=== PATIENT | male | born 1960 | race Caucasian/White ===

== ENCOUNTER 2019-03-11 19:39 | Inpatient (IN) | payer OTHER, MEDICAID ==
[~2019-03-11] VITALS: Ht 170.2 cm; Wt 64.9 kg
[~2019-03-11 19:39] MED LIST: ACET-2634 GT; ACET325T53 GT; CAPTOPRIL; CARB200T GT; CAT.2 GT; CAT3PAT TD; DEPAKOTE; DIPH25TA62 GT; FOLI-43 GT; GABAPENTIN; HYDR-4272 GT; HYDR100T25 GT; KEPPRA; LANS15CA14 GT; LEVE100S2 PO; LORA-259 GT; MOM GT; NOR10 GT; ONDA4TAB5 PO; PEDI1TAB28 GT; POLY17PO4 GT; SENN8.6T19 GT; SIMVASTATIN; SODI650T GT; TOPXL100 PO; TRI48 PO
[2019-03-11 20:25] VITALS: BP_SYST 177
[2019-03-11 21:26] LABS: BASOPHILS # (AUTO) 0.1 K/uL (0.0-0.2); BASOPHILS % (AUTO) 1.1 % (0.0-2.0); EOSINOPHILS # (AUTO) 0.1 K/uL (0.0-0.4); HEMATOCRIT 22.1 % (36-54); LYMPHOCYTES # (AUTO) 1.7 K/uL (1.0-5.5); LYMPHOCYTES % (AUTO) 34.7 % (20.5-51.5); MEAN CORPUSCULAR HEMOGLOBIN 30 pg (27-31); MEAN CORPUSCULAR HGB CONC 32 % (32-36); MEAN CORPUSCULAR VOLUME 95 fL (79.0-98.0); MONOCYTES # (AUTO) 0.4 K/uL (0.0-1.0); MONOCYTES % (AUTO) 8.8 % (1.7-9.3); NEUTROPHILS # (AUTO) 2.6 K/uL (1.8-7.7); NEUTROPHILS % (AUTO) 52.4 % (40.0-70.0); PLATELET COUNT (AUTO) 274 K/uL (130-430); RED BLOOD CELL COUNT(AUTO) 2.32 MIL/uL (4.2-6.2); RED CELL DISTRIBUTION WIDTH 18.3 % (9.0-15.0); WHITE BLOOD COUNT (AUTO) 4.9 K/uL (4.8-10.8)
[2019-03-11 21:44] LABS: ANION GAP 12 (5-15); CALCIUM 8.6 mg/dL (8.4-11.0); CHLORIDE 117 mmol/L (98-107); CREATININE 2.07 mg/dL (0.55-1.30); GLUCOSE 152 mg/dL (70-99); POTASSIUM 4.7 mmol/L (3.5-5.1); SODIUM SERUM 148 mmol/L (136-145); UREA NITROGEN, BLOOD 49 mg/dL (8-21)
[2019-03-11 21:45] LABS: GFR AFRICAN AMERICAN 43 mL/min (>90)
[2019-03-11 21:46] LABS: INR 1.1 (0.80-1.20); PROTHROMBIN TIME 11.1 SECS (9.5-12.5)
[2019-03-11 21:53] LABS: ALANINE AMINOTRANSFERASE 21 U/L (12-78); ALBUMIN 2.5 g/dL (3.4-4.8); ASPARTATE AMINOTRANSFERASE 29 U/L (10-37); TOTAL BILIRUBIN 0.3 mg/dL (0.0-1.0)
[2019-03-12] VITALS (8 sets, daily range): BP systolic 132–163
[2019-03-12] MEDS ORDERED: ACETAMINOPHEN 325 MG TABLET PO PRN (07:45)
[2019-03-12] MEDS ORDERED: ONDANSETRON 4 MG ODT TAB PO PRN ×2 (07:45→14:00)
[2019-03-12] MEDS ORDERED: ACETAMINOPHEN 500 MG TABLET PO PRN (07:45)
[2019-03-12] MEDS ORDERED: HYDROcodone/ACETAMIN 5-325 MG TAB (NORCO/ VICODIN) PO PRN (07:45)
[2019-03-12] MEDS ORDERED: MILK OF MAGNESIA 30 ML UDC PO PRN (07:45)
[2019-03-12] MEDS ORDERED: LORazepam 1 MG TABLET PO PRN (07:45)
[2019-03-12] MEDS ORDERED: DIPHENHYDRAMINE HCL 25 MG CAPSULE PO PRN (07:45)
[2019-03-12] MEDS ORDERED: LANSOPRAZOLE 30 MG CAPSULE.DR GT ONE (08:00)
[2019-03-12] MEDS: FENOFIBRATE NANOCRYSTALLIZED 48 MG TABLET (TRICOR) PO SCH (09:51)
[2019-03-12] MEDS: amLODIPine BESYLATE 10 MG TABLET PO SCH (09:52)
[2019-03-12] MEDS: FOLIC ACID 1 MG TABLET PO SCH (09:52)
[2019-03-12] MEDS: METOPROLOL SUCCINATE 50 MG TAB.SR.24H (TOPROL XL) PO SCH (09:52)
[2019-03-12] MEDS ORDERED: LEVE1000 PO (13:59)
[2019-03-12] MEDS ORDERED: FENOFIBRATE NANOCRYSTALLIZED 48 MG TABLET (TRICOR) PO ONE (14:00)
[2019-03-12] MEDS ORDERED: ACETAMINOPHEN 500 MG TABLET GT PRN (14:00)
[2019-03-12] MEDS ORDERED: HYDROcodone/ACETAMIN 5-325 MG TAB (NORCO/ VICODIN) GT SCH (14:00)
[2019-03-12] MEDS ORDERED: amLODIPine BESYLATE 10 MG TABLET PO ONE (14:00)
[2019-03-12] MEDS ORDERED: METOPROLOL SUCCINATE 50 MG TAB.SR.24H (TOPROL XL) PO ONE (14:00)
[2019-03-12] MEDS ORDERED: LORazepam 1 MG TABLET GT SCH (14:00)
[2019-03-12] MEDS ORDERED: ACETAMINOPHEN 325 MG TABLET PO ONE (15:45)
[2019-03-12] MEDS: levETIRAcetam 500 MG TABLET PO SCH (20:17)
[2019-03-13 01:48] VITALS: BP_SYST 136
[2019-03-13] MEDS ORDERED: FOLIC ACID 1 MG TABLET GT SCH (09:00)
[2019-03-14] MEDS: FOLIC ACID 1 MG TABLET PO SCH (09:00)
[2019-03-15 00:29] VITALS: BP_SYST 124
[2019-03-15 00:54] VITALS: BP_SYST 152
[2019-03-15] MEDS: LANSOPRAZOLE 30 MG CAPSULE.DR GT SCH (07:00)
[2019-03-15 07:41] LABS: BASOPHILS % (AUTO) 0.6 % (0.0-2.0); EOSINOPHILS # (AUTO) 0.2 K/uL (0.0-0.4); EOSINOPHILS % (AUTO) 3.5 % (0.0-4.0); HEMATOCRIT 23.1 % (36-54); HEMOGLOBIN 7.6 g/dL (14.0-18.0); LYMPHOCYTES # (AUTO) 1.6 K/uL (1.0-5.5); LYMPHOCYTES % (AUTO) 25.3 % (20.5-51.5); MEAN CORPUSCULAR HEMOGLOBIN 31 pg (27-31); MEAN CORPUSCULAR HGB CONC 33 % (32-36); MEAN CORPUSCULAR VOLUME 94 fL (79.0-98.0); MONOCYTES # (AUTO) 0.4 K/uL (0.0-1.0); MONOCYTES % (AUTO) 6.5 % (1.7-9.3); NEUTROPHILS % (AUTO) 64.1 % (40.0-70.0); PLATELET COUNT (AUTO) 268 K/uL (130-430); RED BLOOD CELL COUNT(AUTO) 2.46 MIL/uL (4.2-6.2); RED CELL DISTRIBUTION WIDTH 16.6 % (9.0-15.0); WHITE BLOOD COUNT (AUTO) 6.3 K/uL (4.8-10.8)
[2019-03-15 08:17] LABS: CALCIUM 8.6 mg/dL (8.4-11.0); CREATININE 1.92 mg/dL (0.55-1.30); POTASSIUM 5.7 mmol/L (3.5-5.1)
[2019-03-15 12:10] VITALS: BP_SYST 121
[2019-03-15 16:07] VITALS: BP_SYST 139
[2019-03-15] MEDS ORDERED: SODIUM POLYSTYRENE SULFONATE 15 GM/60 ML UDBTL PO ONE (17:15)
[2019-03-16] VITALS: BP_SYST 160
[2019-03-16 03:30] VITALS: BP_SYST 141
[2019-03-16] MEDS ORDERED: SODIUM POLYSTYRENE SULFONATE 15 GM/60 ML UDBTL ONE (03:40)
[2019-03-16] MEDS: LANSOPRAZOLE 30 MG CAPSULE.DR GT SCH ×2 (06:11→07:00)
[2019-03-16 08:26] LABS: HEMATOCRIT 22.1 % (36-54); HEMOGLOBIN 7.4 g/dL (14.0-18.0); MEAN CORPUSCULAR HEMOGLOBIN 31 pg (27-31); MEAN CORPUSCULAR HGB CONC 34 % (32-36); MEAN CORPUSCULAR VOLUME 94 fL (79.0-98.0); PLATELET COUNT (AUTO) 246 K/uL (130-430); RED BLOOD CELL COUNT(AUTO) 2.37 MIL/uL (4.2-6.2); RED CELL DISTRIBUTION WIDTH 16.5 % (9.0-15.0); WHITE BLOOD COUNT (AUTO) 5.5 K/uL (4.8-10.8)
[2019-03-16 08:29] LABS: CALCIUM 8.1 mg/dL (8.4-11.0); CREATININE 2.03 mg/dL (0.55-1.30); POTASSIUM 5.5 mmol/L (3.5-5.1)
[2019-03-16 08:49] VITALS: BP_SYST 142
[2019-03-16] MEDS: METOPROLOL SUCCINATE 50 MG TAB.SR.24H (TOPROL XL) PO SCH (09:22)
[2019-03-16] MEDS: levETIRAcetam 500 MG TABLET PO SCH ×2 (09:23→20:47)
[2019-03-16] MEDS: FENOFIBRATE NANOCRYSTALLIZED 48 MG TABLET (TRICOR) PO SCH (09:23)
[2019-03-16] MEDS: FOLIC ACID 1 MG TABLET PO SCH (09:23)
[2019-03-16] MEDS: ACETAMINOPHEN 325 MG TABLET PO SCH (09:24)
[2019-03-16] MEDS: MILK OF MAGNESIA 30 ML UDC PO SCH (09:24)
[2019-03-16] MEDS: amLODIPine BESYLATE 10 MG TABLET PO SCH (09:24)
[2019-03-16 12:15] VITALS: BP_SYST 137
[2019-03-16 14:49] LABS: BASOPHILS % (MANUAL) 0 % (0-2); EOSINOPHILS % (MANUAL) 5 % (0-7); LYMPHOCYTES % (MANUAL) 13 % (20-46); MONOCYTES % (MANUAL) 6 % (0-11)
[2019-03-16 16:28] VITALS: BP_SYST 137
[2019-03-16] MEDS ORDERED: SODIUM POLYSTYRENE SULFONATE 15 GM/60 ML UDBTL PO SCH (19:00)
[2019-03-17 01:09] VITALS: BP_SYST 138
[2019-03-17] MEDS: LANSOPRAZOLE 30 MG CAPSULE.DR GT SCH ×2 (06:35→07:00)
[2019-03-17 08:57] VITALS: BP_SYST 145
[2019-03-17] MEDS: FOLIC ACID 1 MG TABLET PO SCH ×2 (10:30→10:38)
[2019-03-17] MEDS: FENOFIBRATE NANOCRYSTALLIZED 48 MG TABLET (TRICOR) PO SCH ×2 (10:31→10:38)
[2019-03-17] MEDS: ACETAMINOPHEN 325 MG TABLET PO SCH ×2 (10:31→10:39)
[2019-03-17] MEDS: levETIRAcetam 500 MG TABLET PO SCH ×3 (10:31→21:17)
[2019-03-17] MEDS: amLODIPine BESYLATE 10 MG TABLET PO SCH ×2 (10:32→10:38)
[2019-03-17] MEDS: METOPROLOL SUCCINATE 50 MG TAB.SR.24H (TOPROL XL) PO SCH ×2 (10:32→10:39)
[2019-03-17] MEDS: MILK OF MAGNESIA 30 ML UDC PO SCH ×2 (10:33→10:40)
[2019-03-17 11:26] VITALS: BP_SYST 132
[2019-03-17 15:23] VITALS: BP_SYST 99
[2019-03-17 20:00] VITALS: BP_SYST 121; BP_SYST 131
[2019-03-18] VITALS: BP_SYST 148
[2019-03-18] MEDS: LANSOPRAZOLE 30 MG CAPSULE.DR GT SCH (06:12)
[2019-03-18 07:18] LABS: BASOPHILS % (AUTO) 0.6 % (0.0-2.0); EOSINOPHILS # (AUTO) 0.2 K/uL (0.0-0.4); EOSINOPHILS % (AUTO) 2.3 % (0.0-4.0); HEMATOCRIT 29.6 % (36-54); LYMPHOCYTES # (AUTO) 1.5 K/uL (1.0-5.5); LYMPHOCYTES % (AUTO) 17.3 % (20.5-51.5); MEAN CORPUSCULAR HEMOGLOBIN 32 pg (27-31); MEAN CORPUSCULAR HGB CONC 34 % (32-36); MEAN CORPUSCULAR VOLUME 94 fL (79.0-98.0); MONOCYTES # (AUTO) 0.7 K/uL (0.0-1.0); MONOCYTES % (AUTO) 8.4 % (1.7-9.3); NEUTROPHILS # (AUTO) 6.2 K/uL (1.8-7.7); NEUTROPHILS % (AUTO) 71.4 % (40.0-70.0); PLATELET COUNT (AUTO) 229 K/uL (130-430); RED BLOOD CELL COUNT(AUTO) 3.15 MIL/uL (4.2-6.2); RED CELL DISTRIBUTION WIDTH 16.1 % (9.0-15.0); WHITE BLOOD COUNT (AUTO) 8.7 K/uL (4.8-10.8)
[2019-03-18 07:38] LABS: CREATININE 2.09 mg/dL (0.55-1.30); POTASSIUM 5.1 mmol/L (3.5-5.1)
[2019-03-18 08:16] VITALS: BP_SYST 139
[2019-03-18] MEDS: amLODIPine BESYLATE 10 MG TABLET PO SCH (09:26)
[2019-03-18] MEDS: METOPROLOL SUCCINATE 50 MG TAB.SR.24H (TOPROL XL) PO SCH (09:27)
[2019-03-18] MEDS: FOLIC ACID 1 MG TABLET PO SCH (09:28)
[2019-03-18] MEDS: levETIRAcetam 500 MG TABLET PO SCH ×2 (09:28→20:01)
[2019-03-18] MEDS: FENOFIBRATE NANOCRYSTALLIZED 48 MG TABLET (TRICOR) PO SCH (09:28)
[2019-03-18] MEDS: MILK OF MAGNESIA 30 ML UDC PO SCH (09:29)
[2019-03-18] MEDS: ACETAMINOPHEN 325 MG TABLET PO SCH (09:29)
[2019-03-18 11:31] VITALS: BP_SYST 128
[2019-03-18 15:36] VITALS: BP_SYST 113
[2019-03-18 22:30] VITALS: BP_SYST 125
[2019-03-25 10:29] LABS: CALCIUM 8.4 mg/dL (8.4-11.0); POTASSIUM 4.5 mmol/L (3.5-5.1)
[2019-03-25 10:30] LABS: CREATININE 1.99 mg/dL (0.55-1.30)
[2019-03-25 10:31] LABS: HEMATOCRIT 22.4 % (36-54); HEMOGLOBIN 7.3 g/dL (14.0-18.0); MEAN CORPUSCULAR HEMOGLOBIN 31 pg (27-31); MEAN CORPUSCULAR HGB CONC 33 % (32-36); MEAN CORPUSCULAR VOLUME 95 fL (79.0-98.0); PLATELET COUNT (AUTO) 242 K/uL (130-430); RED BLOOD CELL COUNT(AUTO) 2.36 MIL/uL (4.2-6.2); RED CELL DISTRIBUTION WIDTH 17.2 % (9.0-15.0); WHITE BLOOD COUNT (AUTO) 6.2 K/uL (4.8-10.8)
[2019-03-25 10:34] LABS: ATYPICAL LYMPHOCYTES % 0 % (0-0); BAND % (MANUAL) 1 % (0-6); BASOPHILS % (MANUAL) 0 % (0-2); EOSINOPHILS % (MANUAL) 1 % (0-7); LYMPHOCYTES % (MANUAL) 31 % (20-46); MONOCYTES % (MANUAL) 6 % (0-11)
[2019-03-25 10:35] LABS: INR 1.1 (0.80-1.20)
[2019-03-25 10:37] LABS: TOTAL IRON BIND. CAPACITY 268 ug/dL (250-450)
== END 2019-03-18 22:30 | DRG 811 ==
LOC: SED 19:39 → STU 23:05 → SMU 03-14 00:17
PROVIDERS: ADMIT Family Medicine; ATTEND Family Medicine
PROC: 30233N1 Transfusion of Nonautologous Red Blood Cells into Peripheral Vein, Percutaneous Approach (ICD-10-PCS; principal; 2019-03-17)
DX: D64.9 Anemia, unspecified (principal); E43 Unspecified severe protein-calorie malnutrition; N18.9 Chronic kidney disease, unspecified; I12.9 Hypertensive chronic kidney disease with stage 1 through stage 4 chronic kidney disease, or unspecified chronic kidney disease; G40.909 Epilepsy, unspecified, not intractable, without status epilepticus; K21.9 Gastro-esophageal reflux disease without esophagitis; E11.40 Type 2 diabetes mellitus with diabetic neuropathy, unspecified; E86.0 Dehydration; E11.22 Type 2 diabetes mellitus with diabetic chronic kidney disease; Z86.73 Personal history of transient ischemic attack (TIA), and cerebral infarction without residual deficits; Z68.22 Body mass index [BMI] 22.0-22.9, adult; Z88.8 Allergy status to other drugs, medicaments and biological substances; Z79.899 Other long term (current) drug therapy
CPT/HCPCS: 36415; 80048; 80053; 82607; 82728; 82746; 83540-TC; 83550-TC; 83735-TC; 84484; 85007; 85025; 85027; 85384-TC; 85610-TC; 85730-TC; 86886; 86900; 86901; 86920; 87081; 93005; 97110-GP; 97530-GP; 99285; G0378; J7040; J7050; P9021

== ENCOUNTER 2019-06-16 08:54 | Inpatient (IN) | payer OTHER, MEDICAID ==
[~2019-06-16] VITALS: Ht 170.2 cm; Wt 78.9 kg
[~2019-06-16 08:54] MED LIST changes: -CAPTOPRIL; -CAT.2 GT; -CAT3PAT TD; -DEPAKOTE; -GABAPENTIN; -HYDR100T25 GT; -KEPPRA; +LEVE1000 PO; -PEDI1TAB28 GT; -POLY17PO4 GT; -SENN8.6T19 GT; -SIMVASTATIN; -SODI650T GT
--- NOTE | 2019-06-16 09:15 | NUR ---
Patient to ER bed 5 to gown for evaluation. Side rails up. Resumed care.
--- NOTE | 2019-06-16 09:19 | NUR ---
Patient came into ER because he had seen his PMD Dr. Oropeza and was told to come to ER due to hypotension. BP 131/111, HR 82, Resp 14, O2 97%. Patient has history of epilepsy. Side rails covered with padding and gurney placed at lowest position. Patient not presenting any signs of acute distress or c/o pain.
--- NOTE | 2019-06-16 09:19 | NUR ---
ER Dr. Palma at bedside examining patient.
[2019-06-16 09:42] LABS: BASOPHILS # (AUTO) 0.1 K/uL (0.0-0.2); BASOPHILS % (AUTO) 1.1 % (0.0-2.0); EOSINOPHILS # (AUTO) 0.1 K/uL (0.0-0.4); HEMATOCRIT 22.5 % (36-54); HEMOGLOBIN 7.2 g/dL (14.0-18.0); LYMPHOCYTES # (AUTO) 2.1 K/uL (1.0-5.5); LYMPHOCYTES % (AUTO) 37.3 % (20.5-51.5); MEAN CORPUSCULAR HEMOGLOBIN 31 pg (27-31); MEAN CORPUSCULAR HGB CONC 32 % (32-36); MEAN CORPUSCULAR VOLUME 97 fL (79.0-98.0); MONOCYTES # (AUTO) 0.4 K/uL (0.0-1.0); MONOCYTES % (AUTO) 7.2 % (1.7-9.3); NEUTROPHILS # (AUTO) 2.9 K/uL (1.8-7.7); NEUTROPHILS % (AUTO) 52.4 % (40.0-70.0); PLATELET COUNT (AUTO) 218 K/uL (130-430); RED BLOOD CELL COUNT(AUTO) 2.33 MIL/uL (4.2-6.2); RED CELL DISTRIBUTION WIDTH 16.8 % (9.0-15.0); WHITE BLOOD COUNT (AUTO) 5.5 K/uL (4.8-10.8)
[2019-06-16 09:55] LABS: CALCIUM 8.6 mg/dL (8.4-11.0); CREATININE 2.45 mg/dL (0.55-1.30); INR 1.1 (0.80-1.20); POTASSIUM 5.1 mmol/L (3.5-5.1); PROTHROMBIN TIME 11.5 SECS (9.5-12.5)
[2019-06-16 10:01] LABS: ALBUMIN 2.7 g/dL (3.4-4.8); TOTAL BILIRUBIN 0.4 mg/dL (0.0-1.0)
[2019-06-16] MEDS ORDERED: D5NS 1,000 ML IV ONE (10:45)
[2019-06-16] MEDS ORDERED: CAT.2 PO (11:07)
[2019-06-16] MEDS ORDERED: SODI650T PO (11:08)
[2019-06-16] MEDS ORDERED: HYDR100T25 PO (11:08)
--- NOTE | 2019-06-16 11:15 | NUR ---
# 20 gauge angiocath placed to R Forearm. Use of asceptic technique. Opsite placed over site. Blood return noted. Blood for lab drawn from site. Flushed with 10 cc of normal saline. No evidence of infiltration noted. Patient tolerated well.
--- NOTE | 2019-06-16 11:45 | NUR ---
Patient will be admitted to care of clinical appeals rn. Admitted to Tele unit. Will go to room 114B. Belongings list completed. Complete and up to date summary report printed. SBAR report to be given at bedside with opportunity for questions.
--- NOTE | 2019-06-16 11:56 | NUR ---
ADMISSION NOTE Received patient from ER via [email or web address], received report from JUNIE DOMINGUEZ. Patient admitted with diagnosis of SEVERE ANEMIA. Patient oriented to hospital routine, call light, toileting and safety-patient verbalized understanding. ACCORDING TO JUNIE DOMINGUEZ, MULTIPLE ATTEMPTS WERE MADE TO REACH THE FAMILY FOR BLOOD TRANSFUSION CONSENT.
--- NOTE | 2019-06-16 12:00 | NUR ---
opening note patient is resting in bed, patient able to state name and to me, educated energy economist light system and plan of care, patient was able to verbalize response to me, no signs of distress at this time, IV site dressing in tact, offered orange juice to the patient, no other needs at this time, bed in lowest position, three side rails up, call light within reach, bed alarm on, brake armed, fall/safety precautions in place.
[2019-06-16 12:14] VITALS: BP_SYST 143
[2019-06-16] MEDS ORDERED: ACETAMINOPHEN 500 MG TABLET GT PRN (14:30)
[2019-06-16] MEDS ORDERED: FOLIC ACID 1 MG TABLET GT ONE (14:30)
[2019-06-16] MEDS ORDERED: cloNIDine HCL 0.2 MG TABLET PO PRN (14:30)
[2019-06-16] MEDS ORDERED: ONDANSETRON HCL 4 MG/2 ML VIAL IVP PRN (14:45)
--- NOTE | 2019-06-16 15:33 | NUR ---
BT INITIATION: Consent signed per sister agreeing to administration of blood. Blood has been type and crossmatched. Blood sent from blood bank. Information on unit of blood checked against patient wristband at bedside by two nurses. All information matches. Patient or responsible constitution party informed of potential complications associated with blood transfusion. Informed of possible transfusion reaction symptoms. Aware of need to notify nurse at once of itching, shortness of breath, flushing, feeling of impending doom, or other symptoms not previously present. Vital signs taken within 5 minutes prior to initiation of transfusion. RN will remain with patient for first 15 minutes of transfusion at which time vital signs will be re-assessed.
[2019-06-16 16:00] VITALS: BP_SYST 104
[2019-06-16] MEDS ORDERED: FENOFIBRATE NANOCRYSTALLIZED 48 MG TABLET (TRICOR) PO ONE (16:15)
[2019-06-16] MEDS ORDERED: ACETAMINOPHEN 650 MG/20.3 ML UDC GT PRN (16:30)
[2019-06-16] MEDS: D5/0.45 NS 1,000 ML IV SCH (16:36)
--- NOTE | 2019-06-16 19:00 | NUR ---
CLOSING NOTE patient is resting in bed, 1 unit of PRBCs done, no signs of distress or reactions at this time, IV site dressing in tact, patient able to eat dinner with no signs of aspiration, no other needs at this time, bed in lowest position, three side rails up, call light within reach, bed alarm on, brake armed, fall/safety precautions in place, will endorse care to evening or night nurse supervisor nurse to continue with care, patient needs one more unit of PRBCs, patient is incontinent, I spoke to sister to confirm name and and is aware of the plan of care.
--- NOTE | 2019-06-16 19:50 | NUR ---
OPENING NOTES Received report from ANGELICA Robertson. Patient is resting in bed, awake, alert, oriented x 2-3, breathing evenly and nonlabored on room air. Patient has an IV on the left wrist 20g, patent and benign, no s/s of infection or infiltration noted at this time. Educated patient on plan of care, fall/safety/aspiration/seizure precautions, call light system, patient said "ok." Bed is locked, armed, and at lowest position, will continue to monitor the patient.
[2019-06-16 20:10] VITALS: BP_SYST 120
[2019-06-16] MEDS: SODIUM BICARBONATE 650 MG TABLET GT SCH (20:54)
[2019-06-16] MEDS: MILK OF MAGNESIA 30 ML UDC GT SCH (20:54)
[2019-06-16] MEDS: LevETIRAcetam 500 MG/5 ML UDC ORAL LIQUID GT SCH (20:55)
[2019-06-16] MEDS: hydrALAZINE HCL 25 MG TABLET GT SCH (20:57)
--- NOTE | 2019-06-16 21:05 | NUR ---
MEDICATIONS/ROUNDS Patient is resting in bed, awake, breathing evenly and nonlabored on room air. Educated patient on due medications, patient said "ok." Administered due medications, patient tolerated them well. No s/s of distress at this time, no other needs at this time. Fall/safety/aspiration precautions, will continue to monitor.
--- NOTE | 2019-06-16 21:52 | NUR ---
medications Due medications given. Patient reports he does not like applesauce, though he does like vanilla pudding. Medications were crushed and mixed in pudding and patient took all meds without difficulty.
--- NOTE | 2019-06-16 22:45 | NUR ---
SECOND UNIT OF BLOOD Patient is resting in bed, awake, breathing evenly and nonlabored on room air. Educated patient on procedure, patient said "ok." Vital signs stable. Patient denies any pain at this time. Started the second unit of blood started at 2230, vital signs stable after 15 minutes, patient appears to be tolerating it well. No s/s of distress at this time, no other needs at this time. Fall/safety/aspiration precautions, will continue to monitor.
[2019-06-16 22:51] VITALS: BP_SYST 116
--- NOTE | 2019-06-17 02:05 | NUR ---
BLOOD TRANSFUSION FINISHED Patient is resting in bed, awake, breathing evenly and nonlabored on room air. Vital signs stable after blood transfusion was done. No s/s of distress at this time, no other needs at this time. Fall/safety/aspiration precautions, will continue to monitor. Addendum: 06/17/19 at 0416 by Florian Barboza RN IVF restarted, patient is tolerating it well.
[2019-06-17] MEDS: D5/0.45 NS 1,000 ML IV SCH ×2 (02:16→14:36)
[2019-06-17] MEDS: hydrALAZINE HCL 25 MG TABLET GT SCH ×3 (05:35→21:52)
--- NOTE | 2019-06-17 06:46 | NUR ---
CLOSING NOTES Patient is resting in bed, awake, breathing evenly and nonlabored on room air. Educated patient on due medications, patient said "ok." Administered due medications, patient tolerated them well. No s/s of distress at this time, no other needs at this time. Fall/safety/aspiration precautions, will endorse care to morning shift RN.
[2019-06-17 07:08] LABS: BASOPHILS % (AUTO) 0.7 % (0.0-2.0); EOSINOPHILS # (AUTO) 0.1 K/uL (0.0-0.4); EOSINOPHILS % (AUTO) 1.4 % (0.0-4.0); HEMATOCRIT 32.3 % (36-54); HEMOGLOBIN 10.8 g/dL (14.0-18.0); LYMPHOCYTES # (AUTO) 1.3 K/uL (1.0-5.5); LYMPHOCYTES % (AUTO) 20.9 % (20.5-51.5); MEAN CORPUSCULAR HEMOGLOBIN 31 pg (27-31); MEAN CORPUSCULAR HGB CONC 34 % (32-36); MEAN CORPUSCULAR VOLUME 92 fL (79.0-98.0); MONOCYTES # (AUTO) 0.5 K/uL (0.0-1.0); MONOCYTES % (AUTO) 7.6 % (1.7-9.3); NEUTROPHILS # (AUTO) 4.1 K/uL (1.8-7.7); NEUTROPHILS % (AUTO) 69.4 % (40.0-70.0); PLATELET COUNT (AUTO) 178 K/uL (130-430); RED CELL DISTRIBUTION WIDTH 16.7 % (9.0-15.0)
[2019-06-17 07:19] LABS: CALCIUM 8.3 mg/dL (8.4-11.0); CREATININE 2.03 mg/dL (0.55-1.30); POTASSIUM 5.6 mmol/L (3.5-5.1)
[2019-06-17 07:31] LABS: TOTAL IRON BIND. CAPACITY 298 ug/dL (250-450)
--- NOTE | 2019-06-17 08:00 | NUR ---
Opening note patient resting in bed, a/ox2 - reoriented to place, time and event, he verbalized understanding, denies pain, no distress, IV line is patent and infusing well, fed the patient breakfast, aspiration precautions in place, educated the patient occupational therapy assistant light system, he verbalized understanding, bed in lowest position, three side rails up, bed alarm on, bed close to nursing station, fall, aspiration and seizure precautions in place.
[2019-06-17 08:12] VITALS: BP_SYST 155
[2019-06-17] MEDS ORDERED: ACETAMINOPHEN 325 MG TABLET GT SCH (09:00)
[2019-06-17] MEDS: FENOFIBRATE NANOCRYSTALLIZED 48 MG TABLET (TRICOR) PO SCH (09:19)
[2019-06-17] MEDS: SODIUM BICARBONATE 650 MG TABLET GT SCH ×2 (09:19→21:51)
[2019-06-17] MEDS: MILK OF MAGNESIA 30 ML UDC GT SCH ×2 (09:19→21:51)
[2019-06-17] MEDS: LevETIRAcetam 500 MG/5 ML UDC ORAL LIQUID GT SCH ×2 (09:20→21:51)
[2019-06-17] MEDS: METOPROLOL SUCCINATE 50 MG TAB.SR.24H (TOPROL XL) PO SCH (09:20)
[2019-06-17] MEDS: FOLIC ACID 1 MG TABLET GT SCH (09:20)
[2019-06-17] MEDS: amLODIPine BESYLATE 10 MG TABLET GT SCH (09:20)
--- NOTE | 2019-06-17 09:20 | NUR ---
Medication/Hygiene patient resting in bed, awake, denies pain, patient had a large BM, cleaned, turned and repositioned the patient, he tolerated well, administered morning medications per MD orders, patient tolerated well, no other needs at this time, continuing to monitor, bed in lowest position, three side rails up, bed alarm on, bed close to nursing station, fall, aspiration and seizure precautions in place.
--- NOTE | 2019-06-17 10:14 | NUR ---
Nutrition Update Michael Scale 14 noted. Pt admitted for severe anemia. Diet: mechanical soft, CCHO low carb-45 gm BMI: 27.4 kg/m2 RD to follow per nutrition care standards.
--- NOTE | 2019-06-17 11:20 | NUR ---
RN rounds patient resting in bed, eyes closed, breathing is even and unlabored, no signs of distress, easy to wake, patient denies pain, vital signs taken, IV line is patent and infusing well, no other needs at this time, continuing to monitor, bed in lowest position, three side rails up, bed alarm on, bed close to nursing station, fall, seizure and aspiration precautions in place.
--- NOTE | 2019-06-17 12:40 | NUR ---
RN rounds patient resting in bed, denies pain, no distress, assisted with eating lunch, aspiration precautions in place, patient tolerated well, continuing to monitor , bed in lowest position, three side rails up, bed alarm on, bed close to nursing station, fall, aspiration and seizure precautions in place.
[2019-06-17 12:45] VITALS: BP_SYST 130
--- NOTE | 2019-06-17 14:40 | NUR ---
RN rounds/Medication patient resting in bed, awake, complaining of abdominal pain, administered PRN and scheduled medication per MD orders, continuing to monitor the patient, IV line is patent and infusing well, bed in lowest position, three side rails up, bed alarm on, bed close to nursing station, call light within reach, fall, seizure and aspiration precautions in place.
[2019-06-17 16:50] VITALS: BP_SYST 111
--- NOTE | 2019-06-17 17:44 | NUR ---
Family at bedside updates given, family is feeding the patient, aspiration precautions in place.
--- NOTE | 2019-06-17 18:35 | NUR ---
Closing note patient resting in bed, awake, denies pain, IV line is patent and infusing well, all needs met, will endorse report to NOC shift nurse, bed in lowest position, three side rails up, bed alarm on, bed close to nursing station, fall, aspiration and seizure precautions in place.
--- NOTE | 2019-06-17 19:25 | NUR ---
Opening note Patient is resting on JARED mattress. No s/sx of distress or SOB noted. IVF infusing via IV to Lt wrist. Bed is locked in lowest position, side rails up 3x, seizure pads on side rails. Updated board.
[2019-06-17 20:00] VITALS: BP_SYST 124
--- NOTE | 2019-06-17 22:30 | NUR ---
Patient care Patient had a bowel movement and he was provided with pericare and partial bed bath. He was provided with new pad and linen. He was repositioned and turned.
[2019-06-17] MEDS: HYDROcodone/ACETAMIN 5-325 MG TAB (NORCO/ VICODIN) GT PRN (23:02)
--- NOTE | 2019-06-17 23:05 | NUR ---
c/o pain Patient reporting a headache and abdominal pain, I asked how much [id number] number does he give... and he replied he has medicine at home. I determined he was having moderate pain and administered [place] for moderate pain. Will follow-up, continue to monitor.
--- NOTE | 2019-06-18 00:07 | NUR ---
RN rounds Patient is awake, he reports headache is decreased (1/10), V/S taken and stable. He is watching t.v. and he said he wants t.v. to stay on. Safety, seizure and fall precautions in place. Will continue to monitor.
[2019-06-18 00:15] VITALS: BP_SYST 121
--- NOTE | 2019-06-18 02:09 | NUR ---
RESTING Patient is resting in comfortable position, nonlabored breathing, no SOB. IVF infusing well. Safety, seizure, and fall precautions in place. Will continue to monitor.
[2019-06-18] MEDS: D5/0.45 NS 1,000 ML IV SCH ×2 (04:25→19:30)
--- NOTE | 2019-06-18 04:30 | NUR ---
IVF / RN rounds IVF bag is empty and hung new bag of fluids, infusing as ordered at 75 ml/hr. Patient had bowel movement; provided with pericare and pad/linen change. He was repositioned and turned. Safety precautions in place.
[2019-06-18 06:30] LABS: BASOPHILS % (AUTO) 0.5 % (0.0-2.0); EOSINOPHILS # (AUTO) 0.1 K/uL (0.0-0.4); EOSINOPHILS % (AUTO) 1.1 % (0.0-4.0); LYMPHOCYTES # (AUTO) 1.5 K/uL (1.0-5.5); LYMPHOCYTES % (AUTO) 18.6 % (20.5-51.5); MEAN CORPUSCULAR HEMOGLOBIN 31 pg (27-31); MEAN CORPUSCULAR HGB CONC 33 % (32-36); MEAN CORPUSCULAR VOLUME 92 fL (79.0-98.0); MONOCYTES # (AUTO) 0.6 K/uL (0.0-1.0); MONOCYTES % (AUTO) 7.7 % (1.7-9.3); NEUTROPHILS % (AUTO) 72.1 % (40.0-70.0); PLATELET COUNT (AUTO) 173 K/uL (130-430); RED BLOOD CELL COUNT(AUTO) 3.27 MIL/uL (4.2-6.2); RED CELL DISTRIBUTION WIDTH 16.1 % (9.0-15.0); WHITE BLOOD COUNT (AUTO) 8.3 K/uL (4.8-10.8)
[2019-06-18 06:53] LABS: CREATININE 2.07 mg/dL (0.55-1.30); POTASSIUM 5.4 mmol/L (3.5-5.1)
[2019-06-18] MEDS: hydrALAZINE HCL 25 MG TABLET GT SCH ×3 (06:59→22:21)
--- NOTE | 2019-06-18 07:00 | NUR ---
closing note due medication given, patient repositioned. Needs met throughout shift, safety, seizure precautions in place, will endorse care.
[2019-06-18 07:58] LABS: TOTAL IRON BIND. CAPACITY 287 ug/dL (250-450)
[2019-06-18 08:00] VITALS: BP_SYST 126
--- NOTE | 2019-06-18 08:00 | NUR ---
ASSUMPTION OF CARE: RECEIVED PT A/A/OX1-2, DX:FLUID VOLUME DEFICIT, R/T SEVERE ANEMIA, VSS, HGB/HCT=10.0/30.0, PULSES PALPABLE, COLOR IS GOOD, SKIN WARM, DRY TO TOUCH, BREATHING IS UNLABORED, BREATH SOUNDS ARE CLEAR, AFEBRILE, IV SITE INTACT, PATENT, NO REDNESS OR SWELLING, RESPONSIVE TO NAME, ABLE TO COMMUNICATE HIS NEEDS, ORIENTED TO UNIT AND CALL LIGHT, PLACED WITHIN REACH ON BEDSIDE TABLE, SZ PRECAUTIONS IMPLEMENTED, WILL CONT' TO MONITOR AND ASSESS.
[2019-06-18] MEDS: FENOFIBRATE NANOCRYSTALLIZED 48 MG TABLET (TRICOR) PO SCH (08:53)
[2019-06-18] MEDS: METOPROLOL SUCCINATE 50 MG TAB.SR.24H (TOPROL XL) PO SCH (08:53)
[2019-06-18] MEDS: FOLIC ACID 1 MG TABLET GT SCH (08:54)
[2019-06-18] MEDS: amLODIPine BESYLATE 10 MG TABLET GT SCH (08:55)
[2019-06-18] MEDS: SODIUM BICARBONATE 650 MG TABLET GT SCH ×2 (08:55→20:46)
[2019-06-18] MEDS: LevETIRAcetam 500 MG/5 ML UDC ORAL LIQUID GT SCH ×2 (08:56→21:08)
[2019-06-18] MEDS: MILK OF MAGNESIA 30 ML UDC GT SCH ×2 (08:57→21:08)
[2019-06-18] MEDS: HYDROcodone/ACETAMIN 5-325 MG TAB (NORCO/ VICODIN) GT PRN ×2 (08:59→16:32)
--- NOTE | 2019-06-18 09:00 | NUR ---
BUSINESS INFORMATION ANALYST: MORNING MEDS GIVEN, PER ORDERED BY Bridget, TOLERATED WELL, WILL CONT' WITH POC.
--- NOTE | 2019-06-18 12:00 | NUR ---
NURSES NOTES: PT REMAINS STABLE, NO DISTRESS NOTED, NO C/O PAIN OR DISCOMFORT, CALL LIGHT PLACED WITHIN REACH, WILL CONT' WITH POC.
[2019-06-18 12:43] VITALS: BP_SYST 127
--- NOTE | 2019-06-18 13:59 | NUR ---
Dietitian Recommendations * Recommend mechanical soft, CCHO high carb-75 diet LP, RD Please refer to Nutrition Assessment for details. Addendum: 06/18/19 at [address] Amended: Links added.
--- NOTE | 2019-06-18 16:00 | NUR ---
NURSES NOTES: PT REMAINS STABLE, NO DISTRESS NOTED, NO C/O PAIN OR DISCOMFORT, CALL LIGHT PLACED WITHIN REACH, WILL CONT' WITH POC.
[2019-06-18 16:45] VITALS: BP_SYST 123
--- NOTE | 2019-06-18 18:00 | NUR ---
END OF SHIFT: PT ASLEEP IN BED, WILL NO SIGNIFICANT CHANGES NOTED, CALL LIGHT WITHIN REACH, NO SZ ACTIVITY NOTED, WILL ENDORSE TO UNDERWEAR CUTTER NURSE.
[2019-06-18 19:40] VITALS: BP_SYST 108
--- NOTE | 2019-06-18 19:50 | NUR ---
INITIAL NOTES PATIENT IS RESTING IN BED AND STABLE. NO S/S OF RESPIRATORY DISTRESS NOTED. PATIENT UNSUCCESSFULLY DEMONSTRATES USAGE OF CALL LIGHT AT THIS TIME. WILL CONTINUE TO MONITOR. BED IS LOCKED, ALARMED, AND AT THE LOWEST POSITION. FALL, SAFETY, ASPIRATION, SEIZURE, AND RESPIRATORY PRECAUTIONS WILL BE IN PLACE THROUGHOUT THE SHIFT. PLAN OF CARE IS DISCUSSED WITH PATIENT AT THIS TIME.
--- NOTE | 2019-06-18 21:50 | NUR ---
ROUNDING PATIENT HAD A BOWEL MOVEMENT AT THIS TIME. PATIENT CLEANED AND LINENS CHANGED. PATIENT TOLERATED WELL. NO S/S OF RESPIRATORY DISTRESS NOTED. CALL LIGHT IN REACH. BED IS LOCKED, ALARMED, AND AT THE LOWEST POSITION.
--- NOTE | 2019-06-18 23:50 | NUR ---
ROUNDING PATIENT RESTING IN BED AND STABLE. NO S/S OF RESPIRATORY DISTRESS NOTED. CALL LIGHT IN REACH. BED IS LOCKED, ALARMED, AND AT THE LOWEST POSITION.
[2019-06-19] MEDS: HYDROcodone/ACETAMIN 5-325 MG TAB (NORCO/ VICODIN) GT PRN (01:40)
--- NOTE | 2019-06-19 01:40 | NUR ---
PAIN MEDICATION GIVEN AT THIS TIME. PATIENT UNABLE TO RATE PAIN USING NUMERIC SCALE. PATIENT ABLE TO NOD YES TO PAIN LEVEL BASED ON FACE SCALE.
--- NOTE | 2019-06-19 02:35 | NUR ---
ROUNDING PATIENT RESTING IN BED AND STABLE. NO S/S OF RESPIRATORY DISTRESS NOTED. CALL LIGHT IN REACH. BED IS LOCKED, ALARMED, AND AT THE LOWEST POSITION.
[2019-06-19 03:43] VITALS: BP_SYST 126
[2019-06-19] MEDS ORDERED: ACETAMINOPHEN 650 MG/20.3 ML UDC PO PRN (03:45)
--- NOTE | 2019-06-19 04:35 | NUR ---
ROUNDING PATIENT HAD A BOWEL MOVEMENT AT THIS TIME. PATIENT WAS CLEANED AND CHANGED. LINENS WERE CHANGED. PATIENT TOLERATED WELL. PATIENT IS STABLE. NO S/S OF RESPIRATORY DISTRESS NOTED. CALL LIGHT IN REACH. BED IS LOCKED, ALARMED, AND AT THE LOWEST LEVEL.
[2019-06-19] MEDS: hydrALAZINE HCL 25 MG TABLET PO SCH ×3 (05:03→21:59)
--- NOTE | 2019-06-19 06:21 | NUR ---
CLOSING NOTES PATIENT IS STABLE AND LAYING IN BED. NO S/S OF RESPIRATORY DISTRESS NOTED. CALL LIGHT IN REACH. BED IS LOCKED, ALARMED, AND AT THE LOWEST POSITION. FALL, SAFETY, ASPIRATION, AND RESPIRATORY PRECAUTIONS WAS PLACED THROUGHOUT THE SHIFT. WILL CONTINUE TO MONITOR UNTIL REPORT IS GIVEN TO AM NURSE BY BEDSIDE.
[2019-06-19 08:01] VITALS: BP_SYST 130
[2019-06-19] MEDS: SODIUM BICARBONATE 650 MG TABLET PO SCH ×2 (09:00→21:00)
[2019-06-19] MEDS: FENOFIBRATE NANOCRYSTALLIZED 48 MG TABLET (TRICOR) PO SCH (09:00)
[2019-06-19] MEDS: FOLIC ACID 1 MG TABLET PO SCH (09:00)
[2019-06-19] MEDS: MILK OF MAGNESIA 30 ML UDC PO SCH ×2 (09:00→21:00)
[2019-06-19] MEDS: HYDROcodone/ACETAMIN 5-325 MG TAB (NORCO/ VICODIN) PO PRN (09:50)
[2019-06-19] MEDS: LevETIRAcetam 500 MG/5 ML UDC ORAL LIQUID PO SCH ×2 (09:51→21:00)
[2019-06-19] MEDS: amLODIPine BESYLATE 10 MG TABLET PO SCH (09:52)
[2019-06-19] MEDS: METOPROLOL SUCCINATE 50 MG TAB.SR.24H (TOPROL XL) PO SCH (09:53)
--- NOTE | 2019-06-19 10:00 | NUR ---
patient refused to eat breakfast due to abdominal pain. told pt that we will get order from md for pain med.
[2019-06-19] MEDS: D5/0.45 NS 1,000 ML IV SCH ×2 (10:03→23:52)
--- NOTE | 2019-06-19 10:23 | NUR ---
pt complained of abdominal pain, refused breakfast, given po pain med and important medications. dr roberts made aware, md ordered kub.
[2019-06-19 11:06] LABS: FOLATE (FOLIC ACID) 18.2 ng/mL (>3.0)
[2019-06-19 12:04] VITALS: BP_SYST 116
--- NOTE | 2019-06-19 13:00 | NUR ---
dr roberts here and seen pt, new orders given.
--- NOTE | 2019-06-19 13:30 | NUR ---
dr de souzaium here and seen pt. ordered to given pt ensure.
[2019-06-19] MEDS ORDERED: SODIUM PHOSPHATE,MONO-DIBASIC 133 ML ENEMA RC ONE (13:45)
--- NOTE | 2019-06-19 14:17 | NUR ---
CONSULTATION PAGED/CALLED Reason for Consultation: ACUTE ILEUS Person Who was Notified: CASTRO Consulting Physician: DR. KLINE Investigative Writer Specialty: GI Ordering Physician: DR. WALKER
--- NOTE | 2019-06-19 15:30 | NUR ---
pt has another bm after pt was cleaned for bowel incontinence. pt was given fleets enema earlier as ordered.
[2019-06-19 16:00] VITALS: BP_SYST 107
--- NOTE | 2019-06-19 18:00 | NUR ---
dr oshea here and seen pt. made aware that pt had watery stool before and after fleets enema.
[2019-06-19] MEDS ORDERED: MAGNESIUM CITRATE 300 ML ORAL SOLUTION PO ONE (19:00)
--- NOTE | 2019-06-19 19:22 | NUR ---
paged paged for Dr Ochoa, dialed . s/w Ramon.
--- NOTE | 2019-06-19 19:30 | NUR ---
OPENING NOTE RECEIVED REPORT FROM WHITNEY RN, PATIENT RESTING IN BED, AWAKE, A/OX2, REORIENTED PATIENT TO PERSON, PLACE, TIME AND EVENT, NO SIGN OF ACUTE DISTRESS, EVEN AND UNLABORED BREATHING ON ROOM AIR, IV TO LEFT WRIST INFUSING D5 1/2 NS @75ML/HR, PATENT/BENIGN. SAFETY AND FALL PRECAUTIONS IN PLACE, SEIZURE AND ASPIRATION PRECAUTIONS IN PLACE, BED LOCKED AND IN LOWEST POSITION, BED ALARM ON, THREE SIDE RAILS UP, CALL LIGHT WITH PATIENT, WILL CONTINUE TO MONITOR.
--- NOTE | 2019-06-19 19:34 | NUR ---
P.T. NOTES P.T. ANTOINETTE COMPLETED; ENDORSED TO NURSING. Addendum: 06/19/19 at 1935 by Isabella Alfaro PT Amended: Links added.
--- NOTE | 2019-06-19 19:36 | NUR ---
closing notes, pt had diarrhea 3x today, c/o of abdominal pain, refused meals, dr oshea ordered to prep pt to egd/colonoscopy in am. endorsed to night nurse, on stable condition.
[2019-06-19 20:00] VITALS: BP_SYST 107
[2019-06-19] MEDS ORDERED: GOLYTELY / COLYTE SOLUTION 4 LITERS PO ONE (20:00)
[2019-06-19] MEDS ORDERED: BISACODYL 5 MG TABLET.DR (DULCOLAX) PO ONE (20:00)
--- NOTE | 2019-06-19 20:30 | NUR ---
paged paged for Dr Ochoa, dialed . s/w Mandi.
--- NOTE | 2019-06-19 23:54 | NUR ---
RN ROUNDS PATIENT RESTING IN BED, EYES CLOSED, NO SIGN OF ACUTE DISTRESS, TOLERATING ROOM AIR, IV TO LEFT WRIST INFUSING D5 1/2 NS @75ML/HR, PATENT/BENIGN, CONTINUING TO HAVE PATIENT DRINK GOLYTELY, PATIENT HAS BEEN HAVING DIFFICULTY DRINKING THE MEDICATION AND REFUSES TO DRINK MEDICATION DESPITE EDUCATION. SAFETY AND FALL PRECAUTIONS IN PLACE, SEIZURE AND ASPIRATION PRECAUTIONS IN PLACE, BED LOCKED AND IN LOWEST POSITION, BED ALARM ON, THREE SIDE RAILS UP, CALL LIGHT WITH PATIENT, WILL CONTINUE TO MONITOR.
[2019-06-20] VITALS (7 sets, daily range): BP systolic 105–146
--- NOTE | 2019-06-20 02:00 | NUR ---
INCONTINENCE CARE PATIENT HAD A LARGE LOOSE BM. INCONTINENCE CARE RENDERED BY THIS RN AND TANNER FIBERGLASS BOAT BUILDER. PATIENT IS CLEAN, DRY AND REPOSITIONED, PATIENT TOLERATED WELL. ALL SAFETY PRECAUTIONS IN PLACE, CALL LIGHT WITH PATIENT, WILL CONTINUE TO MONITOR.
--- NOTE | 2019-06-20 05:01 | NUR ---
TAP WATER ENEMA/ SPOKE WITH DR. KLINE ADMINISTERED TAP WATER ENEMA PER MD ORDER, ADMINISTERED 500ML TAPER WATER X6, PATIENT TOLERATED WELL, OUTPUT IS LIQUID WITH SMALL PARTICLES OF FORMED STOOL, ASSISTED PATIENT WITH ESHA CARE, NEW GOWN AND LINENS PROVIDED. SPOKE WITH DR. KLINE REGARDING BOWEL PREP AND STATUS OF TAP WATER ENEMA. MD VERBALIZED TO CONTINUE WITH PATIENT'S SCHEDULED EGD AND TO HOLD PATIENT'S COLONOSCOPY UNTIL PATIENT HAS RECEIVED MORE BOWEL PREP. WILL INFORM GI NURSE AND DAYSHIFT NURSE.
[2019-06-20] MEDS: hydrALAZINE HCL 25 MG TABLET PO SCH ×2 (06:00→23:00)
--- NOTE | 2019-06-20 06:12 | NUR ---
paged paged for Dr Ochoa, dialed . s/w [employer].
--- NOTE | 2019-06-20 06:58 | NUR ---
CLOSING NOTE PATIENT RESTING IN BED, AWAKE, NO SIGN OF ACUTE DISTRESS, TOLERATING ROOM AIR, IV TO LEFT WRIST INFUSING D5 1/2 NS @75ML/HR, PATENT/BENIGN. SAFETY AND FALL PRECAUTIONS IN PLACE, SEIZURE AND ASPIRATION PRECAUTIONS IN PLACE, BED LOCKED AND IN LOWEST POSITION, BED ALARM ON, THREE SIDE RAILS UP, CALL LIGHT WITH PATIENT, WILL ENDORSE CARE TO DAYSHIFT RN.
[2019-06-20 07:15] LABS: BASOPHILS % (AUTO) 0.4 % (0.0-2.0); EOSINOPHILS % (AUTO) 0.6 % (0.0-4.0); HEMATOCRIT 32.1 % (36-54); HEMOGLOBIN 10.4 g/dL (14.0-18.0); LYMPHOCYTES % (AUTO) 16.8 % (20.5-51.5); MEAN CORPUSCULAR HEMOGLOBIN 30 pg (27-31); MEAN CORPUSCULAR HGB CONC 32 % (32-36); MEAN CORPUSCULAR VOLUME 94 fL (79.0-98.0); MONOCYTES # (AUTO) 0.1 K/uL (0.0-1.0); MONOCYTES % (AUTO) 1.3 % (1.7-9.3); NEUTROPHILS # (AUTO) 4.7 K/uL (1.8-7.7); NEUTROPHILS % (AUTO) 80.9 % (40.0-70.0); PLATELET COUNT (AUTO) 177 K/uL (130-430); RED BLOOD CELL COUNT(AUTO) 3.41 MIL/uL (4.2-6.2); RED CELL DISTRIBUTION WIDTH 16.8 % (9.0-15.0); WHITE BLOOD COUNT (AUTO) 5.8 K/uL (4.8-10.8)
[2019-06-20 07:26] LABS: CALCIUM 8.4 mg/dL (8.4-11.0); CREATININE 2.19 mg/dL (0.55-1.30); POTASSIUM 5.5 mmol/L (3.5-5.1)
[2019-06-20 07:33] LABS: INR 1.2 (0.80-1.20); PROTHROMBIN TIME 11.7 SECS (9.5-12.5)
[2019-06-20] MEDS ORDERED: SIMETHICONE 40 MG/0.6 ML ML ONE (08:22)
[2019-06-20] MEDS ORDERED: MIDAZOLAM HCL 5 MG/5 ML VIAL ONE (08:22)
[2019-06-20] MEDS ORDERED: MEPERIDINE HCL/PF 100 MG/ML AMP ONE (08:22)
[2019-06-20] MEDS: SODIUM BICARBONATE 650 MG TABLET PO SCH ×2 (09:00→20:45)
[2019-06-20] MEDS: MILK OF MAGNESIA 30 ML UDC PO SCH ×2 (09:00→20:45)
[2019-06-20] MEDS ORDERED: SODIUM POLYSTYRENE SULFONATE 15 GM/60 ML UDBTL PO ONE (09:45)
[2019-06-20] MEDS ORDERED: SORBITOL 70% SOLUTION, 30 ML UDBTL PO ONE (09:45)
[2019-06-20] MEDS: METOPROLOL SUCCINATE 50 MG TAB.SR.24H (TOPROL XL) PO SCH (11:24)
[2019-06-20] MEDS: FENOFIBRATE NANOCRYSTALLIZED 48 MG TABLET (TRICOR) PO SCH (11:24)
[2019-06-20] MEDS: amLODIPine BESYLATE 10 MG TABLET PO SCH (11:24)
[2019-06-20] MEDS: FOLIC ACID 1 MG TABLET PO SCH (11:24)
[2019-06-20] MEDS: LevETIRAcetam 500 MG/5 ML UDC ORAL LIQUID PO SCH (11:24)
[2019-06-20] MEDS ORDERED: BISACODYL 5 MG TABLET.DR (DULCOLAX) PO ONE (17:00)
[2019-06-20] MEDS ORDERED: GOLYTELY / COLYTE SOLUTION 4 LITERS PO ONE (18:00)
--- NOTE | 2019-06-20 18:52 | NUR ---
PT. WITH NO FURTHER SEIZURE ACTIVITY. VSS, EATING WELL. DENIES PAIN. KEPT DRY AND CLEAN CALL LIGHT IN REACH. WILL CONT. TO MONITOR. AAOX2-3.
--- NOTE | 2019-06-20 19:45 | NUR ---
OPENING NOTE RECEIVED REPORT FROM CHANNINGFT RN, PATIENT RESTING IN BED, EYES CLOSED, NO SIGN OF ACUTE DISTRESS, EVEN AND UNLABORED BREATHING ON ROOM AIR, IV TO LEFT WRIST INFUSING D5 1/2 NS @75ML/HR, PATENT/BENIGN. SAFETY AND FALL PRECAUTIONS IN PLACE, BED LOCKED AND IN LOWEST POSITION, BED ALARM ON, THREE SIDE RAILS UP, SEIZURE AND ASPIRATION PRECAUTIONS IN PLACE, CALL LIGHT WITH PATIENT, WILL CONTINUE TO MONITOR.
--- NOTE | 2019-06-20 20:45 | NUR ---
Med Pass Educated patient on 2100 scheduled medications uses and potential side effects, patient unable to verbalize understanding, patient is A/Ox2 reoriented patient to person, place, time, and event, patient able to tolerate PO medications whole with water. Awaiting for [facility] to bring new scheduled Keppra IV due at 2100, will administered medication per MD order when medication is available. Safety, fall and aspiration precautions in place, seizure precautions in place, call light with patient, will continue to monitor.
[2019-06-20] MEDS: D5/0.45 NS 1,000 ML IV SCH (20:46)
[2019-06-20] MEDS: levETIRAcetam 1,000 MG in NS 100 ML IV SCH (21:00)
[2019-06-20] MEDS ORDERED: LevETIRAcetam 500 MG/5 ML UDC ORAL LIQUID ONE (21:32)
--- NOTE | 2019-06-20 22:01 | NUR ---
INCONTINENCE CARE PATIENT HAD A SMALL LOOSE BM AND VOIDED. INCONTINENCE CARE RENDERED BY THIS RN AND VIKY WEISS. PATIENT IS CLEAN, DRY AND REPOSITIONED, PATIENT TOLERATED WELL. ALL SAFETY PRECAUTIONS IN PLACE, CALL LIGHT WITH PATIENT, WILL CONTINUE TO MONITOR.
--- NOTE | 2019-06-21 00:12 | NUR ---
RN ROUNDS PATIENT RESTING IN BED, EYES CLOSED, NO SIGN OF ACUTE DISTRESS, TOLERATING ROOM AIR, IV TO RIGHT AC INFUSING D5 1/2 NS @75ML/HR, PATENT/BENIGN. SAFETY AND FALL PRECAUTIONS IN PLACE, SEIZURE AND ASPIRATION PRECAUTIONS IN PLACE, CALL LIGHT WITH PATIENT, WILL CONTINUE TO MONITOR.
[2019-06-21 00:40] VITALS: BP_SYST 133
[2019-06-21] MEDS: D5/0.45 NS 1,000 ML IV SCH ×2 (01:25→16:09)
--- NOTE | 2019-06-21 02:40 | NUR ---
RN ROUNDS PATIENT RESTING IN BED, EYES CLOSED, TOLERATING ROOM AIR, NO SIGN OF ACUTE DISTRESS, IV TO RIGHT AC INFUSING D5 1/2 NS @75ML/HR, PATENT/BENIGN. SAFETY AND FALL PRECAUTIONS IN PLACE, SEIZURE AND ASPIRATION PRECAUTIONS IN PLACE, CALL LIGHT WITH PATIENT, WILL CONTINUE TO MONITOR.
--- NOTE | 2019-06-21 04:47 | NUR ---
INCONTINENCE CARE PATIENT VOIDED. INCONTINENCE CARE RENDERED BY THIS RN AND VIKY WEISS. PATIENT IS CLEAN, DRY AND REPOSITIONED, PATIENT TOLERATED WELL. ALL SAFETY PRECAUTIONS IN PLACE, CALL LIGHT WITH PATIENT, WILL CONTINUE TO MONITOR.
[2019-06-21] MEDS: hydrALAZINE HCL 25 MG TABLET PO SCH ×3 (05:29→22:00)
--- NOTE | 2019-06-21 06:15 | NUR ---
CLOSING NOTE PATIENT RESTING IN BED, EYES CLOSED, EVEN AND UNLABORED BREATHING ON ROOM AIR, NO SIGN OF ACUTE DISTRESS, IV TO LEFT WRIST INFUSING D5 1/2 NS @75ML/HR, PATENT/BENIGN, PATIENT REMAINED SEIZURE FREE THROUGHOUT SHIFT. SAFETY AND FALL PRECAUTIONS IN PLACE, SEIZURE AND ASPIRATION PRECAUTIONS IN PLACE, BED LOCKED AND IN LOWEST POSITION, BED ALARM ON, SIDE RAILS UP, CALL LIGHT WITH PATIENT, WILL ENDORSE CARE TO DAYSHIFT RN.
[2019-06-21 07:10] LABS: BASOPHILS % (AUTO) 0.7 % (0.0-2.0); EOSINOPHILS # (AUTO) 0.1 K/uL (0.0-0.4); EOSINOPHILS % (AUTO) 1.8 % (0.0-4.0); HEMATOCRIT 27.2 % (36-54); HEMOGLOBIN 9.1 g/dL (14.0-18.0); LYMPHOCYTES # (AUTO) 0.7 K/uL (1.0-5.5); LYMPHOCYTES % (AUTO) 13.1 % (20.5-51.5); MEAN CORPUSCULAR HEMOGLOBIN 31 pg (27-31); MEAN CORPUSCULAR HGB CONC 33 % (32-36); MEAN CORPUSCULAR VOLUME 93 fL (79.0-98.0); MONOCYTES # (AUTO) 0.6 K/uL (0.0-1.0); MONOCYTES % (AUTO) 10.1 % (1.7-9.3); NEUTROPHILS # (AUTO) 4.1 K/uL (1.8-7.7); NEUTROPHILS % (AUTO) 74.3 % (40.0-70.0); PLATELET COUNT (AUTO) 149 K/uL (130-430); RED BLOOD CELL COUNT(AUTO) 2.93 MIL/uL (4.2-6.2); RED CELL DISTRIBUTION WIDTH 16.7 % (9.0-15.0); WHITE BLOOD COUNT (AUTO) 5.6 K/uL (4.8-10.8)
[2019-06-21 07:30] LABS: CALCIUM 7.4 mg/dL (8.4-11.0); CREATININE 1.95 mg/dL (0.55-1.30); POTASSIUM 4.3 mmol/L (3.5-5.1)
[2019-06-21 08:00] VITALS: BP_SYST 108; BP_SYST 128
[2019-06-21] MEDS: METOPROLOL SUCCINATE 50 MG TAB.SR.24H (TOPROL XL) PO SCH (09:00)
[2019-06-21] MEDS: amLODIPine BESYLATE 10 MG TABLET PO SCH (09:00)
[2019-06-21] MEDS: levETIRAcetam 1,000 MG in NS 100 ML IV SCH ×2 (09:00→22:00)
[2019-06-21] MEDS: POLYETHYLENE GLYCOL 3350, 17 GM/ POWD.PACK PO SCH ×3 (09:00→22:00)
[2019-06-21] MEDS: SODIUM BICARBONATE 650 MG TABLET PO SCH ×2 (10:42→22:00)
[2019-06-21] MEDS: FOLIC ACID 1 MG TABLET PO SCH (10:42)
[2019-06-21] MEDS: FENOFIBRATE NANOCRYSTALLIZED 48 MG TABLET (TRICOR) PO SCH (10:43)
[2019-06-21] MEDS: MILK OF MAGNESIA 30 ML UDC PO SCH ×2 (10:45→21:58)
[2019-06-21 12:00] VITALS: BP_SYST 123
[2019-06-21 12:30] VITALS: BP_SYST 102
[2019-06-21] MEDS: HYDROcodone/ACETAMIN 5-325 MG TAB (NORCO/ VICODIN) PO PRN ×3 (15:47→22:23)
[2019-06-21 16:00] VITALS: BP_SYST 128
[2019-06-21 16:14] VITALS: BP_SYST 102
--- NOTE | 2019-06-21 19:45 | NUR ---
OPENING NOTES Received report from kaykay RN. Patient is awake, alert, oriented x 1-2, breathing evenly and nonlabored on room air. Patient has an IV on the right AC 20g, patent and benign at this time, IVF running, patient is tolerating it well. Padded side rails in place. Educated patient on plan of care, fall/safety/seizure/aspiration precautions, patient unable to state understanding due to cognitive limitations. Bed is locked, armed, and at lowest position, will continue to monitor.
--- NOTE | 2019-06-21 20:45 | NUR ---
ROUNDS Patient is awake, breathing evenly and nonlabored on room air. No s/s of distress at this time, no other needs at this time. Fall/safety/seizure/aspiration precautions, will continue to monitor.
--- NOTE | 2019-06-21 22:00 | NUR ---
MEDICATIONS/ROUNDS Patient is awake, breathing evenly and nonlabored on room air. Patient's IV became infiltrated, restarted IV on the left forearm 24g, patient tolerated it well. IVF restarted, patient is tolerating it well. Educated patient on due medications, patient unable to state understanding due to cognitive limitations. No other needs at this time. Fall/safety/seizure/aspiration precautions, will continue to monitor. Addendum: 06/22/19 at 0059 by Florian Barboza RN Patient complained of moderate pain, educated patient on pain medication and nonpharmacological interventions, patient unable to state understanding due to cognitive limitations but said "ok." Administered pain medication, patient tolerated it well. Hygiene care performed.
--- NOTE | 2019-06-22 00:05 | NUR ---
ROUNDS Patient is resting in bed, eyes closed, breathing evenly and nonlabored on room air. No s/s of distress at this time, no other needs at this time. Fall/safety/seizure/aspiration precautions, will continue to monitor.
[2019-06-22 00:43] VITALS: BP_SYST 128
[2019-06-22] MEDS: D5/0.45 NS 1,000 ML IV SCH ×2 (03:50→16:51)
[2019-06-22] MEDS: hydrALAZINE HCL 25 MG TABLET PO SCH ×3 (06:02→22:00)
[2019-06-22 07:02] LABS: BASOPHILS % (AUTO) 0.9 % (0.0-2.0); EOSINOPHILS # (AUTO) 0.1 K/uL (0.0-0.4); EOSINOPHILS % (AUTO) 2.5 % (0.0-4.0); HEMATOCRIT 26.5 % (36-54); HEMOGLOBIN 8.7 g/dL (14.0-18.0); LYMPHOCYTES # (AUTO) 0.8 K/uL (1.0-5.5); LYMPHOCYTES % (AUTO) 21.4 % (20.5-51.5); MEAN CORPUSCULAR HEMOGLOBIN 30 pg (27-31); MEAN CORPUSCULAR HGB CONC 33 % (32-36); MEAN CORPUSCULAR VOLUME 93 fL (79.0-98.0); MONOCYTES # (AUTO) 0.5 K/uL (0.0-1.0); MONOCYTES % (AUTO) 12.4 % (1.7-9.3); NEUTROPHILS # (AUTO) 2.4 K/uL (1.8-7.7); NEUTROPHILS % (AUTO) 62.8 % (40.0-70.0); PLATELET COUNT (AUTO) 151 K/uL (130-430); RED BLOOD CELL COUNT(AUTO) 2.86 MIL/uL (4.2-6.2); RED CELL DISTRIBUTION WIDTH 16.5 % (9.0-15.0); WHITE BLOOD COUNT (AUTO) 3.9 K/uL (4.8-10.8)
--- NOTE | 2019-06-22 07:07 | NUR ---
CLOSING NOTES Patient is awake, breathing evenly and nonlabored on room air. Educated patient on due medications, patient unable to state understanding due to cognitive limitations. Administered medications, patient tolerated it well. No other needs at this time. Fall/safety/seizure/aspiration precautions, will endorse care to morning shift RN.
--- NOTE | 2019-06-22 07:30 | NUR ---
OPENING NOTES: RECEIVED PATIENT FROM YOUTH SPECIALIST NURSE. PATIENT IS ASLEEP LAYING DOWN IN BED. PATIENT IS TOLERATING OXYGEN ON ROOM AIR WITH NO SIGNS OF DISTRESS OR SHORTNESS OF BREATH NOTED. IV SITE IS PATENT WITH NO SIGNS OF INFILTRATION NOTED AND RUNNING FLUIDS ORDERED. PATIENT IN STABLE CONDITION. SAFETY, FALL, ASPIRATION AND SEIZURE PRECAUTIONS ARE IN PLACE. BED LOCKED IN LOWEST POSITION WITH CALL LIGHT IN REACH. WILL CONTINUE TO MONITOR PATIENT FOR ANY CHANGES.
[2019-06-22 07:34] LABS: CALCIUM 7.4 mg/dL (8.4-11.0); CREATININE 1.96 mg/dL (0.55-1.30); POTASSIUM 3.9 mmol/L (3.5-5.1)
[2019-06-22 08:00] VITALS: BP_SYST 127
[2019-06-22] MEDS: POLYETHYLENE GLYCOL 3350, 17 GM/ POWD.PACK PO SCH ×3 (09:00→22:38)
[2019-06-22] MEDS: MILK OF MAGNESIA 30 ML UDC PO SCH ×2 (09:44→22:37)
[2019-06-22] MEDS: levETIRAcetam 1,000 MG in NS 100 ML IV SCH ×2 (09:44→22:37)
[2019-06-22] MEDS: FOLIC ACID 1 MG TABLET PO SCH (09:44)
[2019-06-22] MEDS: SODIUM BICARBONATE 650 MG TABLET PO SCH ×2 (09:44→22:38)
[2019-06-22] MEDS: FENOFIBRATE NANOCRYSTALLIZED 48 MG TABLET (TRICOR) PO SCH (09:44)
[2019-06-22] MEDS: amLODIPine BESYLATE 10 MG TABLET PO SCH (09:45)
[2019-06-22] MEDS: METOPROLOL SUCCINATE 50 MG TAB.SR.24H (TOPROL XL) PO SCH (09:45)
[2019-06-22] MEDS: HYDROcodone/ACETAMIN 5-325 MG TAB (NORCO/ VICODIN) PO PRN (10:01)
--- NOTE | 2019-06-22 10:20 | NUR ---
RN ROUNDS: PATIENT IS AWAKE AND ALERT x2 LAYING DOWN IN BED. PATIENT WAS REPOSITIONED. PATIENT DENIES ANY PAIN AT THE MOMENT. NO SIGNS OF DISTRESS OR SHORTNESS OF BREATH NOTED. PATIENT IN STABLE CONDITION. WILL CONTINUE TO MONITOR PATIENT FOR ANY CHANGES.
[2019-06-22 12:16] VITALS: BP_SYST 98
--- NOTE | 2019-06-22 12:25 | NUR ---
RN ROUNDS: PATIENT IS ASLEEP LAYING DOWN IN BED. NO SIGNS OF DISTRESS OR SHORTNESS OF BREATH NOTED. PATIENT IN STABLE CONDITION. WILL CONTINUE TO MONITOR PATIENT FOR ANY CHANGES.
--- NOTE | 2019-06-22 14:15 | NUR ---
RN ROUNDS: PATIENT IS ASLEEP LAYING DOWN IN BED. NO SIGNS OF DISTRESS OR SHORTNESS OF BREATH NOTED. IV SITE IS PATENT WITH NO SIGNS OF INFILTRATION NOTED. PATIENT IN STABLE CONDITION. WILL CONTINUE TO MONITOR PATIENT FOR ANY CHANGES.
[2019-06-22 16:35] VITALS: BP_SYST 96
[2019-06-22] MEDS ORDERED: BISACODYL 5 MG TABLET.DR (DULCOLAX) PO ONE (17:00)
[2019-06-22] MEDS ORDERED: GOLYTELY / COLYTE SOLUTION 4 LITERS PO ONE (18:00)
--- NOTE | 2019-06-22 18:47 | NUR ---
CLOSING NOTES: PATIENT IS ASLEEP LAYING DOWN IN BED. PATIENT IS TOLERATING OXYGEN ON ROOM AIR WITH NO SIGNS OF DISTRESS OR SHORTNESS OF BREATH NOTED. IV SITE IS PATENT WITH NO SIGNS OF INFILTRATION NOTED AND RUNNING FLUIDS ORDERED. PATIENT IN STABLE CONDITION. SAFETY, FALL, ASPIRATION AND SEIZURE PRECAUTIONS REMAINED IN PLACE THROUGHOUT THE SHIFT. BED LOCKED IN LOWEST POSITION WITH CALL LIGHT IN REACH. WILL ENDORSE PATIENT CARE TO ONCOMING DIRECTOR COST NURSE.
--- NOTE | 2019-06-22 19:53 | NUR ---
OPENING NOTES Received report from ANGELICA Rowland. Patient is awake, alert, oriented x 1-2, breathing evenly and nonlabored on room air. Patient has an IV on the right AC 20g, patent and benign at this time, IVF running, patient is tolerating it well. Padded side rails in place. Patient NPO after midnight tonight. Educated patient on plan of care, fall/safety/seizure/aspiration precautions, patient unable to state understanding due to cognitive limitations. Bed is locked, armed, and at lowest position, will continue to monitor.
[2019-06-22 20:15] VITALS: BP_SYST 115
[2019-06-23 00:50] VITALS: BP_SYST 114
[2019-06-23] MEDS: hydrALAZINE HCL 25 MG TABLET PO SCH ×3 (05:11→22:54)
[2019-06-23] MEDS: D5/0.45 NS 1,000 ML IV SCH ×2 (05:26→20:20)
[2019-06-23 06:16] LABS: CREATININE 1.91 mg/dL (0.55-1.30); POTASSIUM 3.4 mmol/L (3.5-5.1)
[2019-06-23 06:23] LABS: BASOPHILS % (AUTO) 0.7 % (0.0-2.0); EOSINOPHILS # (AUTO) 0.1 K/uL (0.0-0.4); EOSINOPHILS % (AUTO) 3.6 % (0.0-4.0); HEMATOCRIT 27.4 % (36-54); INR 1.3 (0.80-1.20); LYMPHOCYTES # (AUTO) 0.9 K/uL (1.0-5.5); LYMPHOCYTES % (AUTO) 23.9 % (20.5-51.5); MEAN CORPUSCULAR HEMOGLOBIN 30 pg (27-31); MEAN CORPUSCULAR HGB CONC 33 % (32-36); MEAN CORPUSCULAR VOLUME 92 fL (79.0-98.0); MONOCYTES # (AUTO) 0.6 K/uL (0.0-1.0); MONOCYTES % (AUTO) 14.3 % (1.7-9.3); NEUTROPHILS # (AUTO) 2.2 K/uL (1.8-7.7); NEUTROPHILS % (AUTO) 57.5 % (40.0-70.0); PLATELET COUNT (AUTO) 182 K/uL (130-430); PROTHROMBIN TIME 12.7 SECS (9.5-12.5); RED BLOOD CELL COUNT(AUTO) 2.98 MIL/uL (4.2-6.2); RED CELL DISTRIBUTION WIDTH 16.4 % (9.0-15.0); WHITE BLOOD COUNT (AUTO) 3.9 K/uL (4.8-10.8)
--- NOTE | 2019-06-23 07:04 | NUR ---
CLOSING NOTES Patient is awake, breathing evenly and nonlabored on room air. Educated patient on due medication, patient unable to state understanding due to cognitive limitations. Administered medications, patient tolerated it well. No other needs at this time. Fall/safety/seizure/aspiration precautions, will endorse care to morning shift RN. Addendum: 06/23/19 at 0704 by Florian Barboza RN NPO status started at midnight. Enema done, patient tolerated it well.
--- NOTE | 2019-06-23 07:35 | NUR ---
Opening note patient resting in bed, a/ox2 - reoriented to place, time and event, he verbalized understanding, denies pain, no distress, IV line is patent and infusing well, educated the patient personal attendant light system, he verbalized understanding, bed in lowest position, three side rails up, bed alarm on, bed close to nursing station, fall, aspiration and seizure precautions in place.
[2019-06-23 08:04] VITALS: BP_SYST 144
--- NOTE | 2019-06-23 08:15 | NUR ---
Patient off the unit to GI lab, in stable condition.
[2019-06-23] MEDS: MIDAZOLAM HCL 5 MG/5 ML VIAL ONE ×3 (08:36→09:57)
[2019-06-23] MEDS: MEPERIDINE HCL/PF 25 MG/ML DISP.SYRIN ONE ×2 (08:36→09:56)
[2019-06-23] MEDS ORDERED: MEPERIDINE HCL/PF 25 MG/ML DISP.SYRIN ONE ×2 (08:43→08:45)
[2019-06-23] MEDS ORDERED: SIMETHICONE 40 MG/0.6 ML ML ONE (08:44)
[2019-06-23] MEDS: POLYETHYLENE GLYCOL 3350, 17 GM/ POWD.PACK PO SCH ×3 (09:00→20:19)
[2019-06-23] MEDS: amLODIPine BESYLATE 10 MG TABLET PO SCH (09:00)
[2019-06-23] MEDS: METOPROLOL SUCCINATE 50 MG TAB.SR.24H (TOPROL XL) PO SCH (09:00)
[2019-06-23] MEDS: FENOFIBRATE NANOCRYSTALLIZED 48 MG TABLET (TRICOR) PO SCH (09:00)
[2019-06-23] MEDS: SODIUM BICARBONATE 650 MG TABLET PO SCH ×2 (09:00→20:18)
[2019-06-23] MEDS: MILK OF MAGNESIA 30 ML UDC PO SCH ×2 (09:00→20:18)
[2019-06-23] MEDS: FOLIC ACID 1 MG TABLET PO SCH (09:00)
--- NOTE | 2019-06-23 09:45 | NUR ---
Patient back on the unit awake, but very drowsy, vital signs taken, administered only IV medication due to patient being drowsy, continuing to monitor, bed in lowest position, three side rails up, bed close to nursing station, fall, aspiration and seizure precautions in place.
[2019-06-23] MEDS: levETIRAcetam 1,000 MG in NS 100 ML IV SCH ×2 (09:56→20:10)
--- NOTE | 2019-06-23 11:35 | NUR ---
RN rounds patient resting in bed, eyes closed, breathing is even and unlabored, IV line is patent and infusing well, continuing to monitor, bed in lowest position, three side rails up, bed alarm on, bed close to nursing station, fall, aspiration and seizure precautions in place, call light placed within reach.
[2019-06-23 12:00] VITALS: BP_SYST 129
--- NOTE | 2019-06-23 15:08 | NUR ---
RN rounds/Medication patient resting in bed, eyes closed, breathing is even and unlabored, IV line is patent and infusing well, easy to wake, administered medications per MD orders, patient tolerated well, aspiration precautions in place, continuing to monitor, bed in lowest position, three side rails up, bed alarm on, bed close to nursing station, fall and seizure precautions in place, call light placed within reach.
[2019-06-23 16:36] VITALS: BP_SYST 140
[2019-06-23] MEDS ORDERED: POTASSIUM CHLORIDE 20 MEQ/PKT PACKET PO ONE (18:30)
--- NOTE | 2019-06-23 18:32 | NUR ---
Closing note patient resting in bed, fed the patient dinner, aspiration precautions in place, he tolerated well, all needs met, will endorse report to NOC shift nurse, bed in lowest position, three side rails up, bed alarm on, bed close to nursing station, fall, aspiration and seizure precautions in place. PO potassium not yet verified by the pharmacy.
--- NOTE | 2019-06-23 19:18 | NUR ---
OPENING NOTES RECEIVED PATIENT IN BED AWAKE. DENIES PAIN. BREATHING UNLABORED ON ROOM AIR. SEIZURE PRECAUTIONS IN PLACED.
[2019-06-23 20:08] VITALS: BP_SYST 121
--- NOTE | 2019-06-23 20:19 | NUR ---
MED PASS PATIENT DUE MEDICATIONS GIVEN AND TOLERATED. VITAL SIGNS STABLE.
[2019-06-24 00:22] VITALS: BP_SYST 140
--- NOTE | 2019-06-24 01:00 | NUR ---
ROUNDS PATIENT AWAKE WATCHING TV. IVF INFUSING. VITAL SIGNS STABLE. CALL LIGHT WITH IN REACH.
--- NOTE | 2019-06-24 04:00 | NUR ---
AM CARE INCONTINENCE CARE DONE. ALL LINENS CHANGED.
[2019-06-24] MEDS: hydrALAZINE HCL 25 MG TABLET PO SCH ×2 (06:28→14:06)
--- NOTE | 2019-06-24 06:57 | NUR ---
CLOSING NOTES PATIENT AWAKE IN BED WATCHING TV. IVF INFUSING ORDERED. PATIENT NEEDS ATTENDED. BED IN LOWEST LOCKED POSITION WITH ALARM ON. SEIZURE PRECAUTIONS IN PLACED. CALL LIGHT WITH IN REACH.
[2019-06-24 08:00] VITALS: BP_SYST 143
--- NOTE | 2019-06-24 08:00 | NUR ---
initial notes rec patient awake with hob elevated. ivf infusing well on the r arm. no infiltration noted. resp easy and unlabored. bed to the lowest position and side rails up and locked. call light within reached. denies pain.
[2019-06-24] MEDS: POLYETHYLENE GLYCOL 3350, 17 GM/ POWD.PACK PO SCH ×2 (10:30→17:35)
[2019-06-24] MEDS: levETIRAcetam 1,000 MG in NS 100 ML IV SCH (10:30)
[2019-06-24] MEDS: FENOFIBRATE NANOCRYSTALLIZED 48 MG TABLET (TRICOR) PO SCH (10:30)
--- NOTE | 2019-06-24 10:30 | NUR ---
rounds due meds were given and was changed.pt is incontinent and keep patient dry and clean.
[2019-06-24] MEDS: amLODIPine BESYLATE 10 MG TABLET PO SCH (10:31)
[2019-06-24] MEDS: METOPROLOL SUCCINATE 50 MG TAB.SR.24H (TOPROL XL) PO SCH (10:32)
[2019-06-24] MEDS: FOLIC ACID 1 MG TABLET PO SCH (10:32)
[2019-06-24] MEDS: SODIUM BICARBONATE 650 MG TABLET PO SCH (10:32)
[2019-06-24] MEDS: MILK OF MAGNESIA 30 ML UDC PO SCH (10:33)
--- NOTE | 2019-06-24 13:00 | NUR ---
rounds pt was fed by matt camarena and with good appetite.
[2019-06-24] MEDS: D5/0.45 NS 1,000 ML IV SCH (14:07)
[2019-06-24 15:00] VITALS: BP_SYST 125
--- NOTE | 2019-06-24 17:00 | NUR ---
rounds pt was fed by misbah . denies pain. no sob noted.
--- NOTE | 2019-06-24 18:12 | NUR ---
Called the family spoke with patient's sister, Jenny Leone, regarding discharge orders from Dr. Rockwell. Jenny will arrange "[employer]" transportation for the patient and will call back at the nursing station. Informed primary RN, Mary RN. Jenny Leone [phone].
--- NOTE | 2019-06-24 18:20 | NUR ---
seen by dr hernandez at bedside and stated to call sister esther to picker / packer patient. stated will be here in the next 40 min to pick patient
[2019-06-24 18:36] VITALS: BP_SYST 125
--- NOTE | 2019-06-24 19:00 | NUR ---
closing notes daughter came and was waiting outside. ivl and id band was removed by debo crawley nurse . escorted patient via wheelchair and was assisted by 2 security guards and transferred to his own personal wheelchair. instruction given to patient's sister re resuming home meds and call dr hernandez for follow up appt with him. patient is stable, no sob noted and needs attended.
== END 2019-06-24 18:50 | disposition home or self-care (01) | DRG 388 ==
LOC: SED 08:54 → STU 10:41 → SMU 06-19 15:00
PROVIDERS: ADMIT Family Medicine; ATTEND Family Medicine
PROC: 30233N1 Transfusion of Nonautologous Red Blood Cells into Peripheral Vein, Percutaneous Approach (ICD-10-PCS; principal; 2019-06-16)
PROC: 0DB78ZX Excision of Stomach, Pylorus, Via Natural or Artificial Opening Endoscopic, Diagnostic (ICD-10-PCS; 2019-06-23)
PROC: 0DBN8ZX Excision of Sigmoid Colon, Via Natural or Artificial Opening Endoscopic, Diagnostic (ICD-10-PCS; 2019-06-23)
PROC: 0DB98ZX Excision of Duodenum, Via Natural or Artificial Opening Endoscopic, Diagnostic (ICD-10-PCS; 2019-06-23 08:00)
DX: K56.7 Ileus, unspecified (principal); E43 Unspecified severe protein-calorie malnutrition; N17.9 Acute kidney failure, unspecified; I69.351 Hemiplegia and hemiparesis following cerebral infarction affecting right dominant side; D64.9 Anemia, unspecified; E86.0 Dehydration; G40.909 Epilepsy, unspecified, not intractable, without status epilepticus; N18.9 Chronic kidney disease, unspecified; I12.9 Hypertensive chronic kidney disease with stage 1 through stage 4 chronic kidney disease, or unspecified chronic kidney disease; K29.70 Gastritis, unspecified, without bleeding; K57.90 Diverticulosis of intestine, part unspecified, without perforation or abscess without bleeding; K21.9 Gastro-esophageal reflux disease without esophagitis; E11.40 Type 2 diabetes mellitus with diabetic neuropathy, unspecified; K25.9 Gastric ulcer, unspecified as acute or chronic, without hemorrhage or perforation; K52.9 Noninfective gastroenteritis and colitis, unspecified; K56.41 Fecal impaction; Z88.8 Allergy status to other drugs, medicaments and biological substances; Z79.899 Other long term (current) drug therapy; Z79.891 Long term (current) use of opiate analgesic; Z68.27 Body mass index [BMI] 27.0-27.9, adult
CPT/HCPCS: 36415; 43239; 45380; 71045; 74018; 80048; 80053; 82607; 82728; 82746; 83540-TC; 83550-TC; 83735-TC; 83880; 84484; 85025; 85610-TC; 85730-TC; 86710; 86886; 86900; 86901; 86920; 87081; 88305; 88312; 93005; 99285; G0378; J1953; J2175; J2250; J7042; J7050; P9021